=== PATIENT | male | born 1975 | race Caucasian/White ===

== ENCOUNTER 2024-01-03 23:38 | Emergency (ER) | payer OTHER ==
[~2024-01-03] VITALS: Ht 177.8 cm; Wt 98.9 kg
[2024-01-03] MEDS ORDERED: KLOR-CON 1010 ME1 PO (23:49)
[2024-01-03] MEDS ORDERED: NORVASC10 MG PO (23:49)
[2024-01-04] MEDS ORDERED: METFORMIN HYDR500 MG PO (00:04)
[2024-01-04 00:38] LABS: BASO % 0.3 % (0.0-1.0); EOS # 0.2 10*3/uL (0.0-0.4); EOS % 2.1 % (1.0-4.0); HEMATOCRIT 39.8 % (42.0-52.0); LYMPH # 2.9 10*3/uL (1.3-4.4); LYMPH % 27.6 % (27.0-41.0); MEAN CELL VOLUME 87.1 fl (80.0-94.0); MEAN CORPUSCULAR HGB 29.1 pg (27.0-31.0); MEAN CORPUSCULAR HGB CONC 33.4 g/dl (33.0-37.0); MEAN PLATELET VOLUME 11.6 fl (9.6-12.3); MONO # 0.8 10*3/uL (0.1-1.0); MONO % 7.5 % (3.0-9.0); NEUT # 6.5 10*3/uL (2.3-7.9); NEUT % 62.2 % (47.0-73.0); PLATELET COUNT AUTOMATED 163 10*3/uL (130-400); RED BLOOD COUNT 4.57 10*6/uL (4.50-5.90); RED CELL DISTRI WIDTH 13.2 % (0-14.5); WHITE BLOOD COUNT 10.5 10*3/uL (4.8-10.8)
[2024-01-04] MEDS ORDERED: Iodixanol 320 100 ML VIAL IV ONE (00:45)
[2024-01-04] MEDS ORDERED: SODIUM CHLORIDE 0.9% 100 ML BAG IV ONE (00:45)
[2024-01-04 00:57] LABS: BUN 12 mg/dl (9-23); CHLORIDE 106 mmol/L (98-107); POTASSIUM 3.6 mmol/L (3.4-5.1)
[2024-01-04 01:09] LABS: ACT PARTIAL THROMBO TIME 27.6 SECONDS (20.0-32.1)
[2024-01-04] MEDS ORDERED: Enoxaparin Sodium 100 MG/ML SYR SC ONE (02:05)
[2024-01-04] MEDS ORDERED: CLINDAMYCIN HC300 MG PO (08:54)
[2024-01-04] MEDS ORDERED: CLINDAMYCIN HCL 300 MG CAPSULE PO ONE (08:55)
== END 2024-01-04 09:01 | disposition home or self-care (01) ==
LOC: ED 23:38
PROVIDERS: Internal Medicine
DX: L03.115 Cellulitis of right lower limb (principal); R59.0 Localized enlarged lymph nodes; Z88.0 Allergy status to penicillin; Z91.013 Allergy to seafood; Z88.8 Allergy status to other drugs, medicaments and biological substances

== ENCOUNTER 2024-02-02 20:34 | Emergency (ER) | payer OTHER ==
[~2024-02-02] VITALS: Ht 177.8 cm; Wt 98.9 kg
[~2024-02-02 20:34] MED LIST: CLINDAMYCIN HC300 MG PO; KLOR-CON 1010 ME1 PO; METFORMIN HYDR500 MG PO; NORVASC10 MG PO
[2024-02-02 20:55] LABS: BILIRUBIN 1+ (Negative); BLOOD Negative (Negative); CLARITY Clear (Clear); COLOR Orange (Yellow); GLUCOSE Negative (Negative); KETONE Negative (Negative); LEUKO ESTERASE 2+ (Negative); NITRITE Positive (Negative); SPECIFIC GRAVITY 1.025 (1.001-1.030)
[2024-02-02] MEDS ORDERED: fentaNYL CITRATE 100 MCG/2 ML VIAL IV ONE (21:00)
[2024-02-02] MEDS ORDERED: Ondansetron Hydrochloride 4 MG/2 ML VIAL IV ONE (21:00)
[2024-02-02] MEDS ORDERED: SODIUM CHLORIDE 0.9% 1,000 ML IV ONE (21:00)
[2024-02-02] MEDS ORDERED: Doxycycline Hyclate 100 MG CAP PO ONE ×2 (21:00→22:25)
[2024-02-02] MEDS ORDERED: Ketorolac Tromethamine 15 MG/ML VIAL IV ONE (21:00)
[2024-02-02 21:01] LABS: BACTERIA 1+; MUCOUS 1+; WBC 41-50 wbc/hpf (0-5)
[2024-02-02 21:14] LABS: BASO % 0.2 % (0.0-1.0); EOS # 0.1 10*3/uL (0.0-0.4); EOS % 0.8 % (1.0-4.0); HEMATOCRIT 39.5 % (42.0-52.0); LYMPH # 2.7 10*3/uL (1.3-4.4); LYMPH % 21.6 % (27.0-41.0); MEAN CELL VOLUME 86.1 fl (80.0-94.0); MEAN CORPUSCULAR HGB 29.8 pg (27.0-31.0); MEAN CORPUSCULAR HGB CONC 34.7 g/dl (33.0-37.0); MEAN PLATELET VOLUME 12.1 fl (9.6-12.3); MONO # 1.2 10*3/uL (0.1-1.0); MONO % 9.5 % (3.0-9.0); NEUT # 8.6 10*3/uL (2.3-7.9); NEUT % 67.6 % (47.0-73.0); PLATELET COUNT AUTOMATED 111 10*3/uL (130-400); RED BLOOD COUNT 4.59 10*6/uL (4.50-5.90); RED CELL DISTRI WIDTH 13.6 % (0-14.5); WHITE BLOOD COUNT 12.7 10*3/uL (4.8-10.8)
[2024-02-02 21:34] LABS: BUN 9 mg/dl (9-23); CHLORIDE 101 mmol/L (98-107); POTASSIUM 3.7 mmol/L (3.4-5.1)
[2024-02-02] MEDS ORDERED: MACROBID100 M1 PO (22:25)
[2024-02-02] MEDS ORDERED: VIBRAMYCIN100 MG PO (22:25)
[2024-02-02] MEDS ORDERED: Nitrofurantoin Monohydrate/N 100 MG CAP PO ONE (22:25)
[2024-02-02] MEDS ORDERED: Ondansetron4 MG PO (22:36)
== END 2024-02-02 22:43 | disposition home or self-care (01) ==
LOC: ED 20:34
PROVIDERS: Nurse Practitioner Family
DX: N39.0 Urinary tract infection, site not specified (principal); L03.116 Cellulitis of left lower limb; L03.115 Cellulitis of right lower limb; R11.0 Nausea; R42 Dizziness and giddiness; M54.2 Cervicalgia; I10 Essential (primary) hypertension; Z88.0 Allergy status to penicillin; Z91.013 Allergy to seafood; Z88.8 Allergy status to other drugs, medicaments and biological substances

== ENCOUNTER 2024-02-09 12:08 | Emergency (ER) | payer MEDICAID ==
[~2024-02-09] VITALS: Ht 177.8 cm; Wt 99.8 kg
[~2024-02-09 12:08] MED LIST changes: +MACROBID100 M1 PO; +Ondansetron4 MG PO; +VIBRAMYCIN100 MG PO
[2024-02-09] MEDS ORDERED: PREDNISONE20 M1 PO (13:30)
[2024-02-09] MEDS ORDERED: methylPREDNISolone sod succ 125 MG VIAL IM ONE (13:35)
[2024-02-09 14:01] LABS: BASO % 0.1 % (0.0-1.0); EOS # 0.2 10*3/uL (0.0-0.4); EOS % 2.7 % (1.0-4.0); HEMATOCRIT 40.4 % (42.0-52.0); LYMPH # 2.6 10*3/uL (1.3-4.4); LYMPH % 36.4 % (27.0-41.0); MEAN CELL VOLUME 86.5 fl (80.0-94.0); MEAN CORPUSCULAR HGB 29.1 pg (27.0-31.0); MEAN CORPUSCULAR HGB CONC 33.7 g/dl (33.0-37.0); MONO # 0.7 10*3/uL (0.1-1.0); MONO % 9.1 % (3.0-9.0); NEUT # 3.7 10*3/uL (2.3-7.9); NEUT % 51.4 % (47.0-73.0); PLATELET COUNT AUTOMATED 176 10*3/uL (130-400); RED BLOOD COUNT 4.67 10*6/uL (4.50-5.90); WHITE BLOOD COUNT 7.1 10*3/uL (4.8-10.8)
[2024-02-09 14:20] LABS: BUN 17 mg/dl (9-23); CHLORIDE 105 mmol/L (98-107); POTASSIUM 3.9 mmol/L (3.4-5.1)
[2024-02-09] MEDS ORDERED: FLUCONAZOLE 150 MG TAB PO ONE (14:45)
[2024-02-09] MEDS ORDERED: DEXAMETHASONE 4 MG TAB PO ONE (14:45)
[2024-02-09] MEDS ORDERED: FLUONAZOLE150 M1 PO (15:11)
[2024-02-09] MEDS ORDERED: KENALOG 0.1%80 GM T (15:11)
== END 2024-02-09 15:18 | disposition home or self-care (01) ==
LOC: ED 12:08
PROVIDERS: Internal Medicine
DX: B36.8 Other specified superficial mycoses (principal); L25.9 Unspecified contact dermatitis, unspecified cause; I10 Essential (primary) hypertension; Z88.0 Allergy status to penicillin; Z91.013 Allergy to seafood; Z88.8 Allergy status to other drugs, medicaments and biological substances

== ENCOUNTER 2025-04-30 16:07 | Emergency (ER) | payer OTHER ==
[~2025-04-30] VITALS: Ht 205.7 cm; Wt 97.5 kg
[~2025-04-30 16:07] MED LIST changes: +FLUONAZOLE150 M1 PO; +KENALOG 0.1%80 GM T; +PREDNISONE20 M1 PO
[2025-04-30] MEDS ORDERED: CEPHALEXIN500 M1 PO (17:26)
[2025-04-30] MEDS ORDERED: HYDROCODONE-AC1 EAC1 PO (17:26)
[2025-04-30] MEDS ORDERED: NAPROSYN500 MG PO (17:26)
[2025-04-30] MEDS ORDERED: CEPHALEXIN 500 MG CAP PO ONE (17:30)
[2025-04-30] MEDS ORDERED: Acetaminophen/Hydrocodone Bi 3 TAB PACK PO PRN (17:30)
== END 2025-04-30 17:35 | disposition home or self-care (01) ==
LOC: ED 16:07
DX: S62.300A Unspecified fracture of second metacarpal bone, right hand, initial encounter for closed fracture (principal); S60.410A Abrasion of right index finger, initial encounter; I10 Essential (primary) hypertension; Z88.0 Allergy status to penicillin; Z88.8 Allergy status to other drugs, medicaments and biological substances; Z91.013 Allergy to seafood; W22.09XA Striking against other stationary object, initial encounter; Y93.89 Activity, other specified; Y92.89 Other specified places as the place of occurrence of the external cause; Y99.8 Other external cause status